=== PATIENT | male | born 1990 | race Caucasian/White ===

== ENCOUNTER 2023-10-17 10:00 | Emergency (ER) | payer SELFPAY ==
[~2023-10-17] VITALS: Ht 165.1 cm; Wt 55.0 kg
[2023-10-17 10:02] VITALS: BP 104/61; PULSE 74; TEMP 98.1; O2SAT 97
[2023-10-17] MEDS ORDERED: CLOT15CR27 TP (10:14)
[2023-10-17 10:20] VITALS: RESP 16
== END 2023-10-17 10:45 | disposition home or self-care (01) ==
LOC: ER 10:00
DX: B35.6 Tinea cruris (principal)
CPT/HCPCS: 99281; 99282